=== PATIENT | female | born 1975 | race Caucasian/White ===

== ENCOUNTER 2016-12-07 12:30 | Emergency (ER) | payer OTHER ==
[2016-12-07] MEDS ORDERED: LORazepam 2 MG/ML VIAL ONE (12:48)
[2016-12-07] MEDS ORDERED: 0.9 % SODIUM CHLORIDE 1,000 ML IV ONE ×2 (12:48→12:50)
[2016-12-07] MEDS ORDERED: LORazepam 1 MG TABLET PO ONE (12:49)
[2016-12-07] MEDS ORDERED: LORazepam 2 MG/ML VIAL IVP ONE (12:50)
[2016-12-07 12:52] LABS: BASOPHILS % 0.2 (0.0-1.5); MEAN CORPUSCULAR VOLUME 90.8 fl (80.0-100.0); MONOCYTES % 3.4 % (0.0-11.0); NEUTROPHILS # 6.1 # k/uL (1.4-7.7)
[2016-12-07 13:14] LABS: eGFR (African) > 60; eGFR (Non-African) > 60
--- NOTE | 2016-12-07 13:28 | Diagnostic Imaging Report ---
[facility] [address] [facility].[address] [address] Report Submission Date: Dec 07, 2016 1:22:12 PM CDT Patient Study Name: BELINDA FOSTER Date: Dec 07, 2016 1:02:54 PM CDT Modality Type: CT\SR Gender: F Description: CT BRAIN W/O CONTRAST : 73 Institution: [facility] Physician: DARIUS ALEXANDER CT brain without IV contrast Clinical history: Seizures Radiation dose DLP 689 No visible intracranial bleed, acute infarct, midline shift or hydrocephalus. No visible tumor mass. Opacified right mastoid air cells. Clear sinuses . No visible skull fractures. Impression: Opacified right mastoid air cells. Normal CT brain without IV contrast Electronically signed on Dec 07, 2016 1:22:12 PM CDT by: Antonio HAMMOND
[2016-12-07 14:26] VITALS: BP 120/58
--- NOTE | 2016-12-07 14:32 | ED Physician Documentation ---
Seizure - HPI Stated Complaint: Seizure Chief Complaint: Seizure Additional Information: pt at [facility] for etoh w/drawl taken off xanax-had seizure this am 1100 hrs bit tongue. lasted 30 seconds approx. no etoh for 1 week. no prev seizures ever. perhaps w/drawl of xanax.. she had been sober for 4 yrs recent relapse only for few weeks. Last known Well Date: 11/09/16 Last Known Well Time: 05:25 Last known Well Code/Unknown Code: Known Witnessed By: bystander Preceding Symptoms: none Character of Seizure(s): lost consciousness, unresponsiveness, "shaking all over " Postictal Symptoms: none Location of Injury: tongue - ROS NEURO/PSYCH: denies: headache EYES/ENT: denies: problems with vision CVS/RESP: none GI/: denies: adominal pain, nausea, vomiting MS/SKIN/LYMPH: none - PAST HX Previous seizure/seizure disorder: none Etiology: idiopathic Surgeries/Procedures: other (bilat mastectomy dt genotype) - SOCIAL HX Smoking History: cigarettes Alcohol Use: heavy Drug Use: cocaine, marijuana (as young lady not now) - FAMILY HX Family History: none - VITAL SIGNS Vital Signs: Vital Signs Temp Pulse Resp BP Pulse Ox 98.1 F 78 16 120/58 99 12/07/16 12:30 12/07/16 14:24 12/07/16 14:24 12/07/16 14:24 12/07/16 14:24 - REVIEWED ASSESSMENTS Nursing Assessment Reviewed: Yes Vitals Reviewed: Yes ED Results Lab/Radiology - Lab Results Lab Results: Lab Results 12/07/16 12/07/16 12:47 12:46 WBC 7.90 K/ul K/ul (4.00-12.00) RBC 4.98 M/ul M/ul (3.90-5.20) Hgb 14.9 g/dL g/dL (12.0-16.0) Hct 45.2 % % (34.5-46.5) MCV 90.8 fl fl (80.0-100.0) MCH 30.0 pg pg (28.0-34.0) MCHC 33.0 g/dL g/dL (30.0-36.0) RDW 12.9 % % (11.3-14.3) Plt Count 295 K/mm3 K/mm3 (130-400) Neut % (Auto) 78.1 % % (39.0-79.0) Lymph % (Auto) 16.3 % % (16.0-50.0) [place] % (Auto) 3.4 % % (0.0-11.0) Eos % (Auto) 1.0 % % (0.0-6.8) Baso % (Auto) 0.2 (0.0-1.5) Neut # (Auto) 6.1 # k/uL # k/uL (1.4-7.7) Lymph # (Auto) 1.3 # k/uL # k/uL (0.6-4.0) [place] # (Auto) 0.3 # k/uL # k/uL (0.0-0.9) Eos # (Auto) 0.1 # k/uL # k/uL (0.0-0.6) Baso # (Auto) 0.0 # k/uL # k/uL (0.0-0.5) Reactive Lymphs % 1.0 % % (0.0-5.0) Reactive Lymphs # 0.1 # k/uL # k/uL (0.0-0.8) Sodium 137 mmol/L mmol/L (137-145) Potassium 3.5 mmol/L mmol/L (3.5-5.1) Chloride 104 mmol/L mmol/L (98-107) Carbon Dioxide 27 mmol/L mmol/L (22-30) BUN 5 mg/dL L mg/dL (7-17) Creatinine 0.70 mg/dL mg/dL (0.52-1.04) Estimated Creat Clear 105 Est GFR ( Amer) > 60 (60 - ) Est GFR (Non-Af Amer) > 60 (60 - ) Glucose 109 mg/dL H mg/dL (74-106) Calcium 9.2 mg/dL mg/dL (8.4-10.2) Total Bilirubin 0.3 mg/dL mg/dL (0.2-1.3) AST 23 U/L U/L (15-46) ALT 30 U/L U/L (13-69) Alkaline Phosphatase 64 U/L U/L (38-126) Total Protein 7.3 g/dL g/dL (6.3-8.2) Albumin 4.1 g/dL g/dL (3.5-5.0) - Orders Orders: ED Orders Category Date Time Status Place IV Lock 1T Care 12/07/16 12:[address] IV Lock 1T Care 12/07/16 12:[address] BRAIN W/O CONTRAST Stat Exams 12/07/16 Completed CBC/PLATELET/DIFF Routine Lab 12/07/16 Ordered CBC/PLATELET/DIFF Routine Lab 12/07/16 12:47 Completed CMP [CMP] Routine Lab 12/07/16 12:46 Completed URINALYSIS Routine Lab 12/07/16 Ordered 0.9 % Sodium Chloride [Normal Saline] 1,000 ml Med 12/07/16 12:48 Discontinued IV .STK-MED 0.9 % Sodium Chloride [Normal Saline] 1,000 ml Med 12/07/16 12:50 Discontinued IV Q1H LORazepam [Ativan] Med 12/07/16 12:50 Discontinued 1 mg IVP NOW ONE LORazepam [Ativan] Med 12/07/16 12:49 Discontinued 1 mg PO NOW ONE LORazepam [Ativan] Med 12/07/16 12:48 Discontinued 2 mg .ROUTE .STK-MED ONE Seizure Physical Exam - Physical Exam General Appearance: mild distress Altered Mental Status Higher Functions: alert, oriented x3, mood/affect nml EENT: other (abrasion rt side tongue) Abdomen: non-tender Skin: warm/dry, normal color. No: cyanosis, diaphoresis, jaundice, mottled Extremities: normal range of motion, non-tender Observed Seizure Activity in ED: generalized - Nexus Criteria Neg Nexus Criteria: Nexus criteria neg. denies: midline tenderness Discharge Clincal Impression: seizure perhaps sec. to xanax w/drawl, ethanol abuse none for several days Referrals: Primary Doctor,No [Primary Care Provider] - 2 Days Comments: resp well to ativan. refused xanax refill due to short time effect and risk addiction effect Condition: Good Disposition: 01 HOME, SELF-CARE Decision to Admit: NO Decision Time: 13:24
[2016-12-08 05:42] LABS: APPEARANCE,URINE CLEAR (CLEAR); COLOR,URINE YELLOW (YELLOW); OCCULT BLOOD,URINE NEGATIVE (NEGATIVE); PH URINE 5.5 (5.0 - 8.0); UROBILINOGEN URINE 0.2 Eu (0.2-1.0)
== END 2016-12-07 14:24 | disposition home or self-care (01) ==
LOC: ED 12:30
DX: R69 Illness, unspecified (principal)
CPT/HCPCS: 70450; 80053; 85025; J2060; J7030; 81002; 96361; 96374; 99283; S1016